=== PATIENT | male | born 1935 | race Caucasian/White ===

== ENCOUNTER 2017-09-13 09:10 | Day surgery (SDC) | payer MEDICARE ==
[2017-09-13 10:47] LABS: ADD MAN DIFF? NO
[2017-09-13 10:50] LABS: BASOPHILS % 0.5 % (0.0-2.0); EOSINOPHILS # 0.1 10^3/ul (0.0-0.5); EOSINOPHILS % 1.2 % (0.0-7.0); HEMATOCRIT 41.9 % (42.0-52.0); LYMPHOCYTES # 0.7 10^3/ul (0.8-2.9); LYMPHOCYTES % 13.1 % (15.0-51.0); MEAN CORPUSCULAR HEMOGLOBIN 30.2 pg (29.0-33.0); MEAN CORPUSCULAR HGB CONC 33.4 g/dl (32.0-37.0); MEAN CORPUSCULAR VOLUME 90.3 fl (82.0-101.0); MEAN PLATELET VOLUME 11.2 fl (7.4-10.4); MONOCYTE # 0.3 10^3/ul (0.3-0.9); MONOCYTES % 5.5 % (0.0-11.0); NEUTROPHIL # 4.5 10^3/ul (1.6-7.5); NEUTROPHILS % 79.3 % (39.0-77.0); PLATELET COUNT 161 10^3/UL (140-415); RED BLOOD COUNT 4.64 10^6/ul (4.70-6.10); RED CELL DISTRIBUTION WIDTH 13.5 % (11.5-14.5)
[2017-09-13 10:50] LABS: WHITE BLOOD COUNT 5.7 10^3/ul (4.8-10.8)
[2017-09-13 11:07] LABS: ANION GAP 21 (8-16); CARBON DIOXIDE 26 mmol/L (21-31); CHLORIDE 104 mmol/L (97-110); GLUCOSE 119 mg/dl (70-220)
[2017-09-13 11:08] LABS: ALANINE AMINOTRANSFERASE 25 IU/L (13-69); ALBUMIN 4.2 g/dl (3.3-4.9); ALBUMIN/GLOBULIN RATIO 1.44; ALKALINE PHOSPHATASE 111 IU/L (42-121); ASPARTATE AMINO TRANSFERASE 17 IU/L (15-46); BILIRUBIN,INDIRECT 0.2 mg/dl (0-1.1); BILIRUBIN,TOTAL 0.2 mg/dl (0.2-1.3); TOTAL PROTEIN 7.1 g/dl (6.1-8.1)
[2017-09-13 11:11] LABS: PROTIME 13.3 Sec (11.9-14.9)
[2017-09-13 11:12] LABS: BLOOD UREA NITROGEN 16 mg/dl (7-20); CALCIUM 9.1 mg/dl (8.4-10.2); POTASSIUM 3.6 mmol/L (3.5-5.1)
[2017-09-13 11:13] LABS: SODIUM 147 mmol/L (135-144)
[2017-09-13 11:18] LABS: PARTIAL THROMBOPLASTIN TIME 43.9 Sec (25.0-35.0)
[2017-09-13] MEDS ORDERED: PROPOFOL 20 ML ×2 (11:20→12:06)
[2017-09-13] MEDS ORDERED: FENTAnyl 50 MCG/ML VIAL (11:21)
[2017-09-13] MEDS ORDERED: LIDOCAINE 100 MG SYRINGE (12:06)
== END 2017-09-13 14:24 | disposition home or self-care (01) ==
LOC: SDS 09:10
DX: D49.0 Neoplasm of unspecified behavior of digestive system (principal); K56.699 Other intestinal obstruction unspecified as to partial versus complete obstruction; Z85.46 Personal history of malignant neoplasm of prostate; I10 Essential (primary) hypertension
CPT/HCPCS: 45389; 71045; 72190; 80053; 85025; 85610; 85730; 93005